=== PATIENT | female | born 1955 | race Caucasian/White ===

== ENCOUNTER 2021-07-27 14:05 | Outpatient (CLI) | payer MEDICARE | END 2021-07-27 14:06 | disposition home or self-care (01) | LOC: CSHCT 14:05 | PROVIDERS: ATTEND Anesthesiology Pain Medicine | DX: M54.2 Cervicalgia (principal); M47.812 Spondylosis without myelopathy or radiculopathy, cervical region | CPT/HCPCS: 72125 ==